=== PATIENT | female | born 1970 | race Two or more races ===

== ENCOUNTER 2017-06-13 16:36 | Emergency (ER) | payer MEDICAID ==
[~2017-06-13] VITALS: Ht 165.1 cm; Wt 107.5 kg
[2017-06-13 16:50] VITALS: BP 140/74
[2017-06-13 17:59] LABS: Alanine Aminotransferase 19 U/L (13-56); Albumin 3.4 g/dL (3.4-5.0); Alkaline Phosphatase 112 U/L (45-117); Anion Gap 7 (5-15); Aspartate Aminotransferase 13 U/L (15-37); BUN/Creatinine Ratio 16.7; Bilirubin, Total 0.2 mg/dL (0.2-1.0); Blood Urea Nitrogen 13 mg/dL (7-18); Calcium 8.4 mg/dL (8.5-10.1); Carbon Dioxide 26 mmol/L (21-32); Chloride 107 mmol/L (98-107); GFR African American 102 mL/min; GFR Non-African American 84 mL/min; Glucose 105 mg/dL (74-106); Potassium 3.7 mmol/L (3.5-5.1); Sodium 140 mmol/L (136-145); Total Protein 7.3 g/dL (6.4-8.2)
[2017-06-13 18:02] LABS: Basophils # (auto) 0 uL; Basophils % (auto) 0.4 % (0.0-2.0); Eosinophils # (auto) 0.2 uL; Hematocrit 41.1 % (36.0-46.0); Hemoglobin 13.7 g/dL (12.2-16.2); Lymphocytes % (auto) 38.7 % (10.0-50.0); Mean Corpuscular Hemoglobin 29.6 pg (28.0-32.0); Mean Corpuscular Hgb Conc. 33.4 g/dL (32.0-36.0); Mean Corpuscular Volume 88.6 fL (80.0-100.0); Monocytes # (auto) 0.5 uL; Monocytes % (auto) 4.9 % (0.0-12.0); Neutrophils # (auto) 5.6 uL; Nucleated Red Blood Cells % 0.2 %; Platelet Count (auto) 303 10^3/uL (140-450); Red Blood Cells 4.64 10^6/uL (4.0-5.20); Red Cell Distribution Width 13.6 % (11.8-14.3); White Blood Cell 10.3 10^3/uL (4.4-10.8)
[2017-06-13 18:21] LABS: Urine Bacteria MOD /hpf (None Seen); Urine Blood Negative /uL (Negative); Urine Mucus FEW (None Seen); Urine Specific Gravity 1.031 (1.001-1.035); Urine WBC 10 /hpf (0 - 5)
== END 2017-06-13 18:45 | disposition left against medical advice (07) ==
LOC: ER 16:41
DX: R07.89 Other chest pain (principal); F17.210 Nicotine dependence, cigarettes, uncomplicated; Z86.73 Personal history of transient ischemic attack (TIA), and cerebral infarction without residual deficits; Z98.51 Tubal ligation status
CPT/HCPCS: 36415; 71046; 80053; 81001; 81025; 84484; 85025; 93005

== ENCOUNTER 2024-08-12 10:58 | Day surgery (SDC) | payer MEDICAID ==
[2024-08-06 12:03] LABS: Hematocrit 41.2 % (36.0-46.0); Hemoglobin 14.0 g/dL (12.2-16.2); Mean Corpuscular Hemoglobin 29.5 pg (28.0-32.0); Mean Corpuscular Volume 86.7 fL (80.0-100.0); Nucleated Red Blood Cells % 0.0 %
[2024-08-06 12:14] LABS: INR 1.0 (0.9-1.15); Partial Thromboplastin Time 26.5 SEC (24.5-34.5); Prothrombin Time 10.6 sec (9.3-11.8)
[2024-08-06 12:49] LABS: Urine Protein, UAD Negative (Negative)
[2024-08-06 12:53] LABS: Alanine Aminotransferase 17 U/L (7-40); Albumin 4.2 g/dL (3.2-4.8); Anion Gap 5 (5-15); BUN/Creatinine Ratio 20.3 (10.0-20.0); Blood Urea Nitrogen 14 mg/dL (9-23); Calcium 9.2 mg/dL (8.7-10.4); Carbon Dioxide 29 mmol/L (20-31); Glucose 91 mg/dL (74-106); Potassium 5.0 mmol/L (3.5-5.1); Sodium 144 mmol/L (136-145); Total Protein 6.7 g/dL (5.7-8.2)
[2024-08-06 12:54] LABS: Bilirubin, Total 0.4 mg/dL (0.2-1.0)
[2024-08-06 12:58] LABS: Alkaline Phosphatase 156 U/L (46-116); Chloride 110 mmol/L (98-107)
[~2024-08-12] VITALS: Ht 165.1 cm; Wt 112.9 kg
[~2024-08-12 10:58] MED LIST: B-CO1TAB8 PO; DICL50TA2 PO; GABA-1250 PO; GARL200T PO; MAGN400T40 OR; NAP500T GT; TURM500C3 OR
[2024-08-12] MEDS ORDERED: ceFAZolin 2 GM/D5W50ml 50 ML IV ONE (11:16)
[2024-08-12] MEDS ORDERED: LIDOCAINE 1% HCL (LOCAL ANESTH.) INJ 20ML MDV ONE (11:36)
[2024-08-12] MEDS ORDERED: fentaNYL CITRATE 100 MCG/2 ML VL ONE (11:58)
[2024-08-12] MEDS ORDERED: MIDAZOLAM HCL 2MG/2ML 2ml VIAL (1mg/ml) ONE (11:58)
[2024-08-12] MEDS ORDERED: PROPOFOL 10 MG/ML 20 ML IV ONE (11:58)
[2024-08-12] MEDS ORDERED: ONDANSETRON HCL 4 MG/2 ML VIAL ONE (11:59)
[2024-08-12] MEDS ORDERED: METOCLOPRAMIDE HCL 5MG/ml INJ 2ml VIAL ONE (11:59)
[2024-08-12] MEDS: BUPIVACAINE 0.5% MPF INJ 30ML SDV IJ ONE (12:28)
[2024-08-12 12:48] VITALS: PULSE 69; RESP 15; TEMP 98.1; O2SAT 98
[2024-08-12] MEDS ORDERED: hydrALAZINE HCL 20 MG/ML VL IV PRN (13:00)
[2024-08-12] MEDS ORDERED: METOCLOPRAMIDE HCL 5MG/ml INJ 2ml VIAL IV ONE (13:00)
[2024-08-12] MEDS ORDERED: ONDANSETRON HCL 4 MG/2 ML VIAL IV ONE (13:00)
[2024-08-12] MEDS ORDERED: KETOROLAC TROMETH 30 MG/ML 1ML VIAL IV ONE (13:00)
[2024-08-12] MEDS: HYDROmorphone HCL 2 MG/ML VL/or syr IV PRN (13:33)
[2024-08-12 13:50] VITALS: BP 118/57; PULSE 72; RESP 18; O2SAT 97
--- NOTE | 2024-08-12 14:10 | DVHOP2 ---
Operative Report - 2 Report Details Date: 08/12/24 Preop Diagnosis: 1. Right foot accessory ossicle 2. Right foot cuboid fracture 3. Right foot pain Postop Diagnosis: Right foot fracture Surgeon: Brenda Tracy MD Anesthesiologist: General Anesthesia: General Consent: The patient was informed of the risks and benefits of the procedure. These include but are not limited to complications of anesthesia, postoperative infection, incomplete relief of symptoms, recurrence of symptoms, damage to blood vessels, nerves and tendons, deep venous thrombosis, pulmonary embolism a nd possible need for repeat surgery in the future. Complications: None Estimated Blood Loss: Minimal Fluids: See anesthesia Findings: Consistent with the diagnosis Indications for Surgery: Worsening right foot pain Name of Procedure Performed 1. Right foot fracture fragment excision ([id number]) Procedure Details Procedure Details: PRE-PROCEDURE INFORMATION: In the pre-op holding area, the extremity to be operated on was clearly marked and the patient verified correct laterality of the marking. The patient was transferred to the OR table and placed in a supine position. A timeout was performed in which identification of the correct patient, procedure, location, and materials was done. The _ foot and leg were prepped and draped in normal sterile fashion. The foot and leg were exsanguinated and the _ tourniquet was inflated to 250 mmHg. DESCRIPTION OF PROCEDURE: Attention was directed to the right lateral foot where the accessory cuboid and fracture fragment were located. A 4 cm incision was made over the area. The incision was deepened to the level of the fracture fragment, care was taken to avoid any neurovascular tendinous structures. Once the fracture fragment was identified, using tenotomy scissors the fracture fr agment was removed in its entirety. Using intraoperative fluoroscopy, there was no longer a fragment identified. The incision was then closed with 2-0 Vicryl and 4-0 nylon. All surgical wounds were irrigated copiously with saline and closed in layers with the aforementioned suture material. A dry sterile dressing was placed on the surgical extremity. The patient was placed in a cam boot POSTOPERATIVE INFORMATION: The patient tolerated the above noted procedure and anesthesia well and was transferred to the PACU with vital signs stable, and vascular status intact with capillary refill intact to all digits. Postoperative instructions reviewed in detail with the patient with written instructions provided. Patient will return to clinic in approximately 10-14 days for first postoperative visit. Patient has the number of the clinic and was instructed to call prior to that time should any problems, questions, or concerns arise. Condition Good Disposition Home BRENDA TRACY DPM Aug 12, 2024 14:09
== END 2024-08-12 14:25 | disposition home or self-care (01) ==
LOC: SUR 10:58
PROVIDERS: ATTEND Podiatrist
DX: S92.211A Displaced fracture of cuboid bone of right foot, initial encounter for closed fracture (principal); X58.XXXA Exposure to other specified factors, initial encounter; Y93.89 Activity, other specified; Y92.89 Other specified places as the place of occurrence of the external cause; Y99.8 Other external cause status
CPT/HCPCS: 28122; 36415; 80053; 81001; 85025; 85610; 85730; J0690; J1171; J2250; J2405; J2704; J2765; J3010; J3490; J7120; J2003

== ENCOUNTER 2024-09-01 14:22 | Emergency (ER) | payer MEDICAID ==
[~2024-09-01] VITALS: Ht 165.1 cm; Wt 114.9 kg
--- NOTE | 2024-09-01 14:56 | ED.PDOC ---
Musculoskeletal HPI Comments 53 y/o F, presents to the ED for CC of right foot pain. Patient states, she had surgery to her right lateral heel n2fthpo ago and had her stitches removed on Monday (08/27/24) and was placed in a boot. Since being in the boot, patient repots pain and swelling to the wound site. Patient denies discharge to site, weeping fluids, fever, nausea, or vomiting. No other symptoms or modifying factors present at this time. Time Seen by MD: 14:45 Reviewed Notes: Nurses Notes, Medications, Allergies Allergies: Coded Allergies: Morphine (Verified Allergy, Unknown, 04/19/23) Home Meds Reported Medications B-Complex W/Biotin & Folic Aci (Super B-Complex) 1 Tab Tab, 1 TAB PO DAILY, TAB 08/06/24 Allium Sativan Extract (GARLIC) 200 Mg Tab, 200 MG PO DAILY, TAB 08/06/24 Curcuma Longa (Turmeric) Extra (TURMERIC) 500 Mg Cap, 500 MG OR DAILY, CAP 08/06/24 Magnesium Oxide (MAGNESIUM OXIDE) 400 Mg Tab, 400 MG OR DAILY, TAB 08/06/24 Naproxen (NAPROSYN TABLET) 500 Mg Tb, 500 MG GT BID, TAB 08/06/24 Gabapentin (Gabapentin) 300 Mg Cap, 300 MG PO TID, CAP 08/06/24 Diclofenac Potassium (Diclofenac Potassium) 50 Mg Tab, 70 MG PO BID, TAB 08/06/24 Information Source: Patient Mode of Arrival: Ambulatory Location: Right Extremity Location: Foot Timing: Weeks Prehospital treatment: None Severity: Moderate Able to Move Extremity: Yes Bear Weight: Fully Pain: Moderate Mechanism: Other (post operative) Onset of Symptoms: After Trauma Symptoms: Pain DVT Risk Factors: NONE Last Tetanus: Unknown Associated signs and symptoms: Foot pain Past Medical History PAST MEDICAL HISTORY: TIA Surgical History: BTL Social History Smoker: Cigarettes Alcohol: Occasionally Drugs: Denies Drug Use Lives In: Home Constitutional: denies: chills, diaphoresis, fatigue, fever, malaise, sweats, weakness, others EENTM: denies: blurred vision, double vision, ear bleeding, ear discharge, ear drainage, ear pain, ear ringing, eye pain, eye redness, hearing loss, mouth pain, mouth swelling, nasal discharge, nose bleeding, nose congestion, nose pain, photophobia, tearing, throat pain, throat swelling, voice changes, others Respiratory: denies: cough, hemoptysis, orthopnea, SOB at rest, shortness of breath, SOB with excertion, stridor, wheezing, others Cardiovascular: denies: chest pain, dizzy spells, diaphoresis, Dyspnea on exertion, edema, irregular heart beat, left arm pain, lightheadedness, palpitations, PND, syncope, others Gastrointestinal: denies: abdomen distended, abdominal pain, blood streaked bowels, constipated, diarrhea, dysphagia, difficulty swallowing, hematemesis, melena, nausea, poor appetite, poor fluid intake, rectal bleeding, rectal pain, vomiting, others Genitourinary: denies: abnormal vagina bleeding, burning, dyspareunia, dysuria, flank pain, frequency, hematuria, incontinence, pain, , vagina discharge , urgency, others Neurological: denies: dizziness, fainting, headache, left sided numbness, left sided weakness, numbness, paresthesia, pre-existing deficit, right sided numbness, right sided weakness, seizure, speech problems, tingling, tremors, weakness, others Musculoskeletal: reports: others (right foot pain); denies: back pain, gout, joint pain, joint swelling, muscle pain, muscle stiffness, neck pain Integumetry: denies: bruises, change in color, change in hair/nails, dryness, laceration, lesions, lumps, rash, wounds, others Allergic/Immunocompromised: denies: Difficulty Healing, Frequent Infections, Hives, Itching, others Hematologic/Lymphatic: denies: anemia, blood clots, easy bleeding, easy bruising, swollen glands, others Endocrine: denies: excessive hunger, excessive sweating, excessive thirst, excessive urination, flushing, intolerance to cold, intolerance to heat, unexplained weight gain, unexplained weight loss, others Psychiatric: denies: anxiety, bipolar disorder, depression, hopeless, panic disorder, schizophrenia, sleepless, suicidal, others All Other Systems: Reviewed and Negative Physical Exam General Appearance: Moderate Distress HEENT: Normal ENT Inspection, Pharynx Normal, TMs Normal Neck: Full Range of Motion, Non-Tender, Normal, Normal Inspection Respiratory: Chest Non-Tender, Lungs Clear, No Accessory Muscle Use, No Res piratory Distress, Normal Breath Sounds Cardiovascular: No Edema, No JVD, No Murmur, No Gallop, Normal Peripheral Pulses, Regular Rate/Rhythm Breast Exam: Deferred Gastrointestinal: No Organomegaly, Non Tender, No Pulsatile Mass, Normal Bowel Sounds, Soft Genitalia: Deferred Pelvic: Deferred Rectal: Deferred Extremities: Other (Post surgical right foot) Musculoskeletal : Apperance: Normal Neurologic: Alert, crucible packer II-XII nml as Tested, No Motor Deficits, Normal Affect, Normal Mood, No Sensory Deficits Cerebellar Function: NOT DONE Reflexes: NOT DONE Skin: Dry, Normal Color, Warm Peripheral Pulses: 3+ Radial (R), 3+ Radial (L) Lymphatic: No Adenopathy Was a procedure done? Was a procedure done?: No Differential Diagnosis EXT Differential Diagnosis: Cellulitis X-Ray, Labs, Meds, VS Vital Signs Date Time Temp Pulse Resp B/P (MAP) Pulse Ox O2 Delivery O2 Flow Rate FiO2 09/01/24 15:03 98.8 95 16 144/74 (97) 97 98.8 [place] [id number] Ph: [phone] DIAGNOSTIC IMAGING Diagnostic Imaging Report : [id number] Signed PATIENT: VICKIE STONE ACCT: [id number] UNIT: [id number] : 1970 LOC: ER ROOM / BED: / AGE / SEX: 53 / F ADM STATUS: REG ER SERVICE [id number] ORDERING PHYSICIAN: LENI DHILLON MD PROCEDURE(s): RFOT2 - R FOOT 2 VIEW XRAY REASON: pain ORDER NUMBER(s): [id number], ACCESSION NUMBER(s): [id number] XY R FOOT 2 VIEW XRAY, INDICATION: pain TECHNICAL DATA: Frontal, and lateral views were obtained of the right foot. COMPARISON: None FINDINGS: No fracture is identified. Joint spaces are maintained. Alignment is anatomic. The hallux sesamoids appear normal. Soft tissues are within normal limits. IMPRESSION: No acute fracture or dislocation of the right foot. ATED BY: MICHAEL HUTCHISON MD DICTATED DATE/TIME: 09/01/24 1528 SIGNED BY: MICHAEL HUTCHISON MD SIGNED DATE/TIME: 09/01/24 1528 CC: Patient alert. States that she has pain in the right foot. Recently had surgery on that foot. Vitals stable. Answering questions. She is having physiotherapy. X-ray of the foot does not show any acute process. Reviewed her previous visit. No calf tenderness. No leg swelling. No shortness a breath. No chest pain. Explained to the patient. Was told to follow up with her primary care physician. Was told to come back if there is any problem. Time of 1ST Reevaluation: 15:15 Reevaluation 1ST: Unchanged Patient Education/Counseling: Diagnosis, Treatment Family Education/Counseling: No Family Present Departure 1 Departure Time of Disposition: 16:15 Impression: Primary Impression: Acute postoperative pain of right foot Disposition: 01 HOME / SELF CARE / HOMELESS Condition: Good Discharged With: Self Critical Care Note Critical Care Time?: No Stability Stability form required: No Heart Score Heart Score: Heart Score Response (Comments) Value History N/A 0 EKG N/A 0 Age N/A 0 Risk Factors N/A 0 Troponin N/A 0 Total 0 I personally scribed for LENI DHILLON MD ([email or web address]) on 09/01/24 at 14:56. Electronically submitted by Arielle Austin ([email or web address]). I personally scribed for LENI DHILLON MD ([email or web address]) on 09/01/24 at 15:48. Electronically submitted by Arielle Austin ([email or web address]). LENI DHILLON MD Sep 01, 2024 14:56
--- NOTE | 2024-09-01 15:31 | DVH ---
XY R FOOT 2 VIEW XRAY, INDICATION: pain TECHNICAL DATA: Frontal, and lateral views were obtained of the right foot. COMPARISON: None FINDINGS: No fracture is identified. Joint spaces are maintained. Alignment is anatomic. The hallux sesamoids a ppear normal. Soft tissues are within normal limits. IMPRESSION: No acute fracture or dislocation of the right foot.
[2024-09-01 16:30] VITALS: BP 149/57; PULSE 72; RESP 20; TEMP 98.2; O2SAT 99
== END 2024-09-01 16:50 | disposition home or self-care (01) ==
LOC: ER 14:35
DX: G89.18 Other acute postprocedural pain (principal); M79.671 Pain in right foot; F17.210 Nicotine dependence, cigarettes, uncomplicated; Z86.73 Personal history of transient ischemic attack (TIA), and cerebral infarction without residual deficits; Z98.51 Tubal ligation status; Z79.899 Other long term (current) drug therapy; Z88.5 Allergy status to narcotic agent
CPT/HCPCS: 73620